=== PATIENT | male | born 1985 | race Caucasian/White ===

== ENCOUNTER → 2020-06-05 | Day surgery (SDC) | payer OTHER ==
[~2020-06-05] MED LIST: HYDROXYZINE HCL10 MG PO; TOPIRAMATE100 MG PO; TOPROL XL 25MG25 MG PO; VITAMIN D3 PO
== END | disposition home or self-care (01) ==
LOC: FAS 07:23
DX: K92.1 Melena (principal); R19.7 Diarrhea, unspecified; K59.00 Constipation, unspecified; I10 Essential (primary) hypertension; F41.9 Anxiety disorder, unspecified; Z82.49 Family history of ischemic heart disease and other diseases of the circulatory system; Z83.3 Family history of diabetes mellitus
CPT/HCPCS: J2704; J7120